=== PATIENT | female | born 1930 | race Caucasian/White ===

== ENCOUNTER → 2016-09-22 | Outpatient (CLI) | payer OTHER ==
--- NOTE | 2016-09-22 13:32 | DX ---
Chest, Two Views September 22, 2016 1208 hours History: Palpitations, irregular heartbeat, R00.2. Comparison: September 2012. Findings: Cardiac silhouette is mildly enlarged. Minimal residual scarring in the lingula. Atherosc lerotic tortuous aorta. Bilateral peribronchial thickening suggesting chronic bronchitis. Apical pleu roparenchymal scarring again noted. No pneumonia, congestive heart failure, pleural effusion, or pneu mothorax. Impression: 1. Chronic bronchitis. 2. Atherosclerotic aorta. 3. Mild cardiomegaly. 4. No focal pneumonia.
== END ==
LOC: BRMIMAGING 11:57
PROVIDERS: ATTEND Family Medicine
DX: J42 Unspecified chronic bronchitis (principal); I70.0 Atherosclerosis of aorta; I51.7 Cardiomegaly
CPT/HCPCS: 71020-PO

== ENCOUNTER → 2016-09-25 | Outpatient (CLI) | payer OTHER ==
--- NOTE | 2016-09-25 12:59 | DX ---
Chest, PA and Lateral Views - September 25, 2016, at 11:57 a.m. Clinical History: 85-year-old female with left-sided chest wall and breast pain and no history of an tecedent trauma. ICD-10 Diagnostic Code: R07.89. Comparison Study: Chest, dated September 22, 2016. Findings: The cardiac silhouette remains enlarged, with a C:T ratio of 15.3 : 25.4 cm. There is mura l calcification of the aortic knob. There is biapical pleuroparenchymal fibrosis. There is no focal i nfiltrate, pleural effusion, peripheral interstitial edema, or pneumothorax. There are some senescent features of the spine. The cephalad aspect of some lumbar arthrodesis hardware is seen. Impression: No acute abnormality, or substantial change from September 22, 2016.
== END ==
LOC: BRMIMAGING 11:51
PROVIDERS: ATTEND Family Medicine
DX: R09.89 Other specified symptoms and signs involving the circulatory and respiratory systems (principal)
CPT/HCPCS: 71020-PO

== ENCOUNTER → 2016-10-06 | Outpatient (CLI) | payer OTHER ==
--- NOTE | 2016-10-06 17:28 | DX ---
DEXA Bone Mineral Densitometry Clinical Indications: Postmenopausal female. Lumbar spine surgery. Osteopenia, follow-up. Comparison: June 2012. Technique: Bone Mineral Densitometry (BMD) by [employer] X-Ray Absorptiometry (DEXA) was performed utilizing the [employer] scanner. The lumbar spine was evaluated in the AP projection. The bilat eral hips and forearm were evaluated in the AP projection. Vertebral fracture assessment was also pe rformed. AP left Hip: Neck BMD: 0.719 gm/cm2 T-score: -2.3 SD Z-score: 0.1 SD No significant change AP right Hip: Neck BMD: 0.796 gm/cm2 T-score: -1.7 SD Z-score: 0.7 SD 5% increase AP left Forearm, 09/19: BMD: 0.587 gm/cm2 T-score: -3.3 SD Z-score: -0.2 SD 5% decrease Vertebral Fracture Assessment: No significant fracture deformity. Conclusion: Considering the lowest measured site, the patient is osteoporotic. The ten year risk for any major osteoporotic fracture is 17.6% and for a hip fracture is 6.1%. Any bone loss in this patient is probably related to aging or estrogen deficiency. Consider excluding secondary metabolic causes of bone loss (reported to be present in as many as 30% of patients with normal Z scores). Laboratory evaluation might include hydroxy vitamin D3 level, TSH, PTH, calcium, 24-hour urine calcium, phosphorous, albumin, creatinine, alkaline phosphatase, serum e lectrophoresis (SPEP or UPEP), anti-tissue transglutaminase antibody levels (celiac disease) and CBC . If secondary causes are excluded, then consider initiating treatment with a bisphosphonate (such a s Fosamax, Actonel or Boniva). If the patient is unable to use an oral bisphosphonate, another agent such as IV bisphosphonates (Boniva or Reclast), teriparatide (Forteo), or a selective estrogen recept or modulator (Evista) might be considered. Supplementing an insufficient diet to achieve total intakes of 1500 mg calcium and 800 International Units of vitamin D daily should be considered. Osteoporosis prevention and treatment begins by modify ing risk factors. The patient should be encouraged to participate in a regular exercise program that includes weightbearing and muscle strengthening regimens, as is clinically appropriate. Recommend follow-up DEXA in one year to assess the efficacy of pharmacologic intervention and/or travis ection of appropriate secondary cause.
== END ==
LOC: BRMIMAGING 13:57
PROVIDERS: ATTEND Family Medicine
DX: Z13.820 Encounter for screening for osteoporosis (principal); M81.0 Age-related osteoporosis without current pathological fracture; M85.80 Other specified disorders of bone density and structure, unspecified site; Z78.0 Asymptomatic menopausal state

== ENCOUNTER → 2017-10-12 | Outpatient (CLI) | payer OTHER | LOC: BRMIMAGING 13:42 | PROVIDERS: ATTEND Family Medicine | DX: Z12.31 Encounter for screening mammogram for malignant neoplasm of breast (principal) ==

== ENCOUNTER → 2018-03-07 | Outpatient (CLI) | payer OTHER | LOC: BRMIMAGING 09:36 | PROVIDERS: ATTEND Family Medicine | DX: N63.20 Unspecified lump in the left breast, unspecified quadrant (principal) | CPT/HCPCS: 76641-PO ==

== ENCOUNTER → 2018-11-06 | Outpatient (CLI) | payer OTHER | LOC: BRMIMAGING 10:52 | PROVIDERS: ATTEND Family Medicine | DX: M85.80 Other specified disorders of bone density and structure, unspecified site (principal); Z12.31 Encounter for screening mammogram for malignant neoplasm of breast ==